=== PATIENT | female | born 1985 | race Caucasian/White ===

== ENCOUNTER 2017-09-01 13:45 | Emergency (ER) | payer OTHER ==
[~2017-09-01] VITALS: Ht 165.1 cm; Wt 90.7 kg
[2017-09-01] MEDS ORDERED: Verotin-Gr Cap1 EACH PO (14:07)
[2017-09-01] MEDS ORDERED: ALBU90OI INH (15:28)
[2017-09-01] MEDS ORDERED: METPRE4DP PO (15:28)
== END 2017-09-01 15:33 | disposition home or self-care (01) ==
LOC: ER 13:45
DX: J40 Bronchitis, not specified as acute or chronic (principal); Z88.0 Allergy status to penicillin; Z87.891 Personal history of nicotine dependence; Z79.899 Other long term (current) drug therapy
CPT/HCPCS: 71046; 87081; 87430; 99283

== ENCOUNTER 2022-08-27 14:33 | Emergency (ER) | payer OTHER ==
[~2022-08-27] VITALS: Ht 165.1 cm; Wt 99.8 kg
[~2022-08-27 14:33] MED LIST: ALBU90OI INH; METPRE4DP PO; Verotin-Gr Cap1 EACH PO
[2022-08-27 15:15] LABS: BASOPHILS ABSOLUTE AUTO 0.04 K/mm3 (0.00-0.23); BASOPHILS PERCENT AUTO 1 % (0-2); EOSINOPHILS ABSOLUTE AUTO 0.17 K/mm3 (0.00-0.68); EOSINOPHILS PERCENT AUTO 2 % (0-6); Hematocrit 38.1 % (33.0-51.0); Hemoglobin 12.7 g/dL (11.5-16.0); IMMATURE GRAN ABSOLUTE AUTO 0.02 K/mm3 (0.00-0.10); IMMATURE GRAN PERCENT AUTO 0 % (0-1); LYMPHOCYTES ABSOLUTE AUTO 1.87 K/mm3 (0.84-5.20); LYMPHOCYTES PERCENT AUTO 22 % (21-46); MONOCYTES ABSOLUTE AUTO 0.39 K/mm3 (0.16-1.47); MONOCYTES PERCENT AUTO 5 % (4-13); Mean Corpuscular HGB 29.1 pg (26.0-34.0); Mean Corpuscular HGB Conc 33.3 g/dL (31.5-36.5); Mean Corpuscular Volume 87 fL (80-100); Mean Platelet Volume 10.2 fL (9.1-12.4); NEUTROPHILS ABSOLUTE AUTO 5.97 K/mm3 (1.96-9.15); NEUTROPHILS PERCENT AUTO 71 % (41-73); Platelet Count 263 K/mm3 (150-400); RDW Standard Deviation 41.5 fL (35.1-46.3); Red Blood Cell Count 4.36 M/mm3 (3.80-5.20); White Blood Cell Count 8.46 K/mm3 (4.00-11.30)
[2022-08-27 15:31] LABS: Albumin, Blood 3.6 g/dL (3.4-5.0); Bilirubin, Total 0.2 mg/dL (0.1-1.0); Bun/Creatinine Ratio 20.8 (12.0-20.0); Calcium, Blood 8.5 mg/dL (8.5-10.1); Creatinine, Blood 0.58 mg/dL (0.40-1.00); Globulin, Blood 3.6 g/dL (2.2-4.0); Potassium, Blood 3.6 mmol/L (3.5-5.5); Total Protein, Blood 7.2 g/dL (6.4-8.2)
== END 2022-08-27 16:20 | disposition home or self-care (01) ==
LOC: ER 14:33
PROVIDERS: Physician Assistant
DX: N94.6 Dysmenorrhea, unspecified (principal); F17.200 Nicotine dependence, unspecified, uncomplicated
CPT/HCPCS: 36415; 80053; 84703; 85025

== ENCOUNTER → 2022-11-10 | Outpatient (CLI) | payer OTHER ==
[2022-11-10 14:46] LABS: CHOL/HDL RATIO 3.2; Cholesterol 155 mg/dL (50-200); HDL Cholesterol 48 mg/dL (>39); LDL/HDL RATIO 1.5; Low Density Lipoprotein Chol 71 mg/dL (0-110); Triglycerides 179 mg/dL (30-140); Very Low Density Lipoprot Chol 35 mg/dL (6-28)
[2022-11-11 08:11] LABS: HIV AB/P24 AG SCREEN Non Reactive (Non Reactive)
== END | disposition home or self-care (01) ==
LOC: LAB 12:19 → LAB SHORT 12:19
PROVIDERS: Student in an Organized Health Care Education/Training Program
DX: Z11.59 Encounter for screening for other viral diseases (principal); Z11.4 Encounter for screening for human immunodeficiency virus [HIV]; E55.9 Vitamin D deficiency, unspecified; E78.5 Hyperlipidemia, unspecified; R53.83 Other fatigue
CPT/HCPCS: 80061; 82306; 84443; 86803; 87389